=== PATIENT | male | born 1940 | race Caucasian/White ===

== ENCOUNTER 2021-02-09 20:41 | Inpatient (IN) ==
[2021-02-10] MEDS ORDERED: Ondansetron ODT 4 MG TAB.RAPDIS SL PRN (15:42)
[2021-02-10] MEDS ORDERED: Acetaminophen 325 MG TABLET PO PRN (15:42)
[2021-02-11] MEDS: Indomethacin 25 MG CAPSULE PO SCH ×4 (03:47→17:03)
[2021-02-11] MEDS: *HR* Enoxaparin 40 MG/0.4 ML SYRINGE SQ SCH (06:07)
[2021-02-11 06:54] LABS: Basophils % 0.2 %; Eosinophils # 0.3 K/mcL (0.0-0.6); Hematocrit 42.7 % (37.5-50.1); Hemoglobin 14.3 g/dL (12.9-16.9); Immature Granulocytes % 0.5 % (0-4); Lymphocytes # 1.1 K/mcL (0.6-4.6); Lymphocytes % 13.1 %; Mean Corpuscular HGB Conc 33.5 g/dL (31.6-35.5); Mean Corpuscular Hemoglobin 30.2 pg (28.0-33.3); Mean Corpuscular Volume 90.3 fL (83.0-100.0); Mean Platelet Volume 10.7 fL (9.4-12.4); Monocytes # 0.9 K/mcL (0.0-1.3); Monocytes % 10.4 %; Neutrophils # 6.1 K/mcL (1.6-8.9); Platelet Count 345 K/mcL (140-400); Red Blood Count 4.73 M/mcL (4.19-5.50); Red Cell Distribution Width 13.2 % (11.5-14.5); Segmented Neutrophils % 72.8 %; White Blood Count 8.4 K/mcL (4.3-11.1)
[2021-02-11 07:17] LABS: BUN/Creatinine Ratio 26 (6-26); Blood Urea Nitrogen 28 mg/dL (8-23); Calcium 8.5 mg/dL (8.6-10.3); Carbon Dioxide 32 mEq/L (23-29); Chloride 103 mEq/L (98-107); Glucose 92 mg/dL (70-105); Osmolality,Calculated 299 (280-300); Potassium 4.2 mEq/L (3.5-5.1); Sodium 142 mEq/L (136-145); eGFR For African Americans > 60 (> 60); eGFR For Non-African Americans > 60 (> 60)
[2021-02-11] MEDS: amLODIPine 5 MG TABLET PO SCH (10:23)
[2021-02-11] MEDS: hydrALAZINE 25 MG TABLET PO SCH ×2 (12:09→20:46)
[2021-02-11] MEDS: *HR* HYDROcodone/Acet 5/325 mg TABLET PO PRN (12:10)
[2021-02-12] MEDS: hydrALAZINE 25 MG TABLET PO SCH ×3 (05:15→19:54)
[2021-02-12] MEDS: *HR* Enoxaparin 40 MG/0.4 ML SYRINGE SQ SCH (05:16)
[2021-02-12] MEDS: Indomethacin 25 MG CAPSULE PO SCH ×2 (07:55→12:08)
[2021-02-12] MEDS: amLODIPine 5 MG TABLET PO SCH (07:55)
[2021-02-13] MEDS: hydrALAZINE 25 MG TABLET PO SCH ×3 (05:42→22:32)
[2021-02-13] MEDS: *HR* Enoxaparin 40 MG/0.4 ML SYRINGE SQ SCH (05:42)
[2021-02-13] MEDS: amLODIPine 5 MG TABLET PO SCH (09:36)
[2021-02-13] MEDS: allopurinoL 100 MG TABLET PO SCH (09:36)
[2021-02-13] MEDS: *HR* HYDROcodone/Acet 5/325 mg TABLET PO PRN ×2 (16:32→22:32)
[2021-02-14] MEDS: *HR* Enoxaparin 40 MG/0.4 ML SYRINGE SQ SCH (05:29)
[2021-02-14] MEDS: hydrALAZINE 25 MG TABLET PO SCH ×4 (07:38→21:25)
[2021-02-14] MEDS: allopurinoL 100 MG TABLET PO SCH (07:43)
[2021-02-14] MEDS: amLODIPine 5 MG TABLET PO SCH (07:43)
[2021-02-15] MEDS: *HR* Enoxaparin 40 MG/0.4 ML SYRINGE SQ SCH (05:29)
[2021-02-15] MEDS: hydrALAZINE 25 MG TABLET PO SCH ×3 (05:29→21:24)
[2021-02-15] MEDS: allopurinoL 100 MG TABLET PO SCH (10:30)
[2021-02-15] MEDS: amLODIPine 5 MG TABLET PO SCH (10:30)
[2021-02-16] MEDS: hydrALAZINE 25 MG TABLET PO SCH ×3 (05:12→20:17)
[2021-02-16] MEDS: *HR* Enoxaparin 40 MG/0.4 ML SYRINGE SQ SCH (05:14)
[2021-02-16 06:53] LABS: Basophils % 0.3 %; Eosinophils # 0.3 K/mcL (0.0-0.6); Eosinophils % 3.3 %; Hematocrit 39.5 % (37.5-50.1); Hemoglobin 13.4 g/dL (12.9-16.9); Immature Granulocytes % 0.5 % (0-4); Lymphocytes # 1.2 K/mcL (0.6-4.6); Lymphocytes % 15.1 %; Mean Corpuscular HGB Conc 33.9 g/dL (31.6-35.5); Mean Corpuscular Hemoglobin 31.2 pg (28.0-33.3); Mean Corpuscular Volume 92.1 fL (83.0-100.0); Mean Platelet Volume 10.9 fL (9.4-12.4); Monocytes # 0.9 K/mcL (0.0-1.3); Monocytes % 11.4 %; Neutrophils # 5.4 K/mcL (1.6-8.9); Platelet Count 254 K/mcL (140-400); Red Blood Count 4.29 M/mcL (4.19-5.50); Red Cell Distribution Width 13.4 % (11.5-14.5); Segmented Neutrophils % 69.4 %; White Blood Count 7.8 K/mcL (4.3-11.1)
[2021-02-16 07:08] LABS: BUN/Creatinine Ratio 20 (6-26); Blood Urea Nitrogen 21 mg/dL (8-23); Calcium 8.8 mg/dL (8.6-10.3); Carbon Dioxide 27 mEq/L (23-29); Chloride 99 mEq/L (98-107); Glucose 96 mg/dL (70-105); Osmolality,Calculated 291 (280-300); Potassium 3.8 mEq/L (3.5-5.1); Sodium 139 mEq/L (136-145); eGFR For African Americans > 60 (> 60); eGFR For Non-African Americans > 60 (> 60)
[2021-02-16] MEDS: amLODIPine 5 MG TABLET PO SCH (08:46)
[2021-02-16] MEDS: allopurinoL 100 MG TABLET PO SCH (08:46)
[2021-02-16] MEDS: *HR* HYDROcodone/Acet 5/325 mg TABLET PO PRN (15:04)
[2021-02-17] MEDS: *HR* Enoxaparin 40 MG/0.4 ML SYRINGE SQ SCH (06:01)
[2021-02-17] MEDS: hydrALAZINE 25 MG TABLET PO SCH ×3 (06:01→20:19)
[2021-02-17] MEDS: allopurinoL 100 MG TABLET PO SCH (09:40)
[2021-02-17] MEDS: amLODIPine 5 MG TABLET PO SCH (09:40)
[2021-02-18] MEDS: hydrALAZINE 25 MG TABLET PO SCH ×3 (05:26→21:21)
[2021-02-18] MEDS: *HR* Enoxaparin 40 MG/0.4 ML SYRINGE SQ SCH (05:32)
[2021-02-18] MEDS: amLODIPine 5 MG TABLET PO SCH (08:31)
[2021-02-18] MEDS: allopurinoL 100 MG TABLET PO SCH (08:31)
[2021-02-19] MEDS: hydrALAZINE 25 MG TABLET PO SCH ×3 (05:00→22:31)
[2021-02-19] MEDS: *HR* Enoxaparin 40 MG/0.4 ML SYRINGE SQ SCH (05:01)
[2021-02-19] MEDS: allopurinoL 100 MG TABLET PO SCH (08:25)
[2021-02-19] MEDS: amLODIPine 5 MG TABLET PO SCH (08:25)
[2021-02-19] MEDS ORDERED: Capsaicin 0.025% 60 GM TUBE TP PRN (15:27)
[2021-02-19] MEDS: Capsaicin 0.025% 60 GM TUBE TP SCH ×2 (16:45→22:31)
[2021-02-19] MEDS ORDERED: QUEtiapine Fumarate 25 MG TABLET PO SCH (21:00)
[2021-02-19] MEDS: QUEtiapine Fumarate 25 MG TABLET PO SCH (22:30)
[2021-02-20] MEDS: *HR* HYDROcodone/Acet 5/325 mg TABLET PO PRN ×2 (01:48→10:23)
[2021-02-20] MEDS: *HR* Enoxaparin 40 MG/0.4 ML SYRINGE SQ SCH (06:10)
[2021-02-20] MEDS: hydrALAZINE 25 MG TABLET PO SCH ×3 (06:16→21:46)
[2021-02-20 08:32] LABS: Basophils % 0.1 %; Eosinophils # 0.1 K/mcL (0.0-0.6); Eosinophils % 0.9 %; Hematocrit 38.6 % (37.5-50.1); Hemoglobin 12.8 g/dL (12.9-16.9); Immature Granulocytes % 0.6 % (0-4); Lymphocytes # 0.9 K/mcL (0.6-4.6); Lymphocytes % 10.7 %; Mean Corpuscular HGB Conc 33.2 g/dL (31.6-35.5); Mean Corpuscular Hemoglobin 30.5 pg (28.0-33.3); Mean Corpuscular Volume 92.1 fL (83.0-100.0); Mean Platelet Volume 10.6 fL (9.4-12.4); Monocytes # 1.2 K/mcL (0.0-1.3); Monocytes % 13.7 %; Neutrophils # 6.3 K/mcL (1.6-8.9); Platelet Count 248 K/mcL (140-400); Red Blood Count 4.19 M/mcL (4.19-5.50); Red Cell Distribution Width 13.5 % (11.5-14.5); White Blood Count 8.5 K/mcL (4.3-11.1)
[2021-02-20 08:56] LABS: BUN/Creatinine Ratio 19 (6-26); Blood Urea Nitrogen 22 mg/dL (8-23); Calcium 8.7 mg/dL (8.6-10.3); Carbon Dioxide 25 mEq/L (23-29); Chloride 103 mEq/L (98-107); Glucose 123 mg/dL (70-105); Osmolality,Calculated 289 (280-300); Potassium 3.8 mEq/L (3.5-5.1); Sodium 137 mEq/L (136-145); eGFR For African Americans > 60 (> 60); eGFR For Non-African Americans > 60 (> 60)
[2021-02-20] MEDS: allopurinoL 100 MG TABLET PO SCH (09:12)
[2021-02-20] MEDS: amLODIPine 5 MG TABLET PO SCH (09:12)
[2021-02-20] MEDS: Capsaicin 0.025% 60 GM TUBE TP SCH ×4 (09:12→21:47)
[2021-02-20] MEDS: QUEtiapine Fumarate 25 MG TABLET PO SCH (21:46)
[2021-02-21] MEDS: hydrALAZINE 25 MG TABLET PO SCH ×3 (05:52→23:46)
[2021-02-21] MEDS: *HR* Enoxaparin 40 MG/0.4 ML SYRINGE SQ SCH (05:53)
[2021-02-21] MEDS: amLODIPine 5 MG TABLET PO SCH (08:13)
[2021-02-21] MEDS: allopurinoL 100 MG TABLET PO SCH (08:14)
[2021-02-21] MEDS: *HR* HYDROcodone/Acet 5/325 mg TABLET PO PRN ×2 (08:14→17:08)
[2021-02-21] MEDS: Capsaicin 0.025% 60 GM TUBE TP SCH ×4 (08:15→23:49)
[2021-02-21] MEDS: QUEtiapine Fumarate 25 MG TABLET PO SCH (23:46)
[2021-02-22] MEDS: *HR* Enoxaparin 40 MG/0.4 ML SYRINGE SQ SCH (06:37)
[2021-02-22] MEDS: hydrALAZINE 25 MG TABLET PO SCH ×3 (06:50→23:05)
[2021-02-22 06:55] LABS: Bilirubin,Urine Negative (Negative); Blood,Urine Negative (Negative); Clarity,Urine Clear (Clear); Color,Urine Yellow (Yellow); Glucose,Urine (UA) Normal (Normal); Ketones,Urine Negative (Negative); Leukocyte Esterase,Urine Negative (Negative); Nitrite,Urine Negative (Negative); PH,Urine 5.5 pH Units (5.0-8.0); Protein,Urine Trace mg/dL (Neg-Trace); Urobilinogen,Urine Normal (Normal)
[2021-02-22] MEDS: amLODIPine 5 MG TABLET PO SCH (11:13)
[2021-02-22] MEDS: allopurinoL 100 MG TABLET PO SCH (11:14)
[2021-02-22] MEDS: Capsaicin 0.025% 60 GM TUBE TP SCH ×4 (11:14→17:43)
[2021-02-22] MEDS: *HR* HYDROcodone/Acet 5/325 mg TABLET PO PRN ×2 (11:42→17:40)
[2021-02-22] MEDS: QUEtiapine Fumarate 25 MG TABLET PO SCH (19:53)
[2021-02-23] MEDS: *HR* Enoxaparin 40 MG/0.4 ML SYRINGE SQ SCH (06:31)
[2021-02-23] MEDS: hydrALAZINE 25 MG TABLET PO SCH ×3 (06:38→20:09)
[2021-02-23] MEDS: amLODIPine 5 MG TABLET PO SCH (09:17)
[2021-02-23] MEDS: allopurinoL 100 MG TABLET PO SCH (09:17)
[2021-02-23] MEDS: Capsaicin 0.025% 60 GM TUBE TP SCH ×4 (09:18→20:09)
[2021-02-23] MEDS: QUEtiapine Fumarate 25 MG TABLET PO SCH (20:09)
[2021-02-24] MEDS: *HR* HYDROcodone/Acet 5/325 mg TABLET PO PRN ×2 (06:53→16:31)
[2021-02-24] MEDS: *HR* Enoxaparin 40 MG/0.4 ML SYRINGE SQ SCH (06:53)
[2021-02-24] MEDS: hydrALAZINE 25 MG TABLET PO SCH ×3 (06:53→20:39)
[2021-02-24] MEDS: amLODIPine 5 MG TABLET PO SCH (09:17)
[2021-02-24] MEDS: allopurinoL 100 MG TABLET PO SCH (09:17)
[2021-02-24] MEDS: Capsaicin 0.025% 60 GM TUBE TP SCH ×4 (09:18→20:40)
[2021-02-24] MEDS: QUEtiapine Fumarate 25 MG TABLET PO SCH (20:39)
[2021-02-25] MEDS: *HR* Enoxaparin 40 MG/0.4 ML SYRINGE SQ SCH (05:40)
[2021-02-25] MEDS: hydrALAZINE 25 MG TABLET PO SCH ×3 (05:41→21:13)
[2021-02-25] MEDS: Capsaicin 0.025% 60 GM TUBE TP SCH ×4 (09:11→21:15)
[2021-02-25] MEDS: allopurinoL 100 MG TABLET PO SCH (09:11)
[2021-02-25] MEDS: amLODIPine 5 MG TABLET PO SCH (09:11)
[2021-02-25] MEDS: *HR* HYDROcodone/Acet 5/325 mg TABLET PO PRN (21:13)
[2021-02-25] MEDS: QUEtiapine Fumarate 25 MG TABLET PO SCH (21:14)
[2021-02-26] MEDS: *HR* Enoxaparin 40 MG/0.4 ML SYRINGE SQ SCH (06:07)
[2021-02-26] MEDS: hydrALAZINE 25 MG TABLET PO SCH ×3 (06:07→20:56)
[2021-02-26] MEDS: amLODIPine 5 MG TABLET PO SCH (07:41)
[2021-02-26] MEDS: allopurinoL 100 MG TABLET PO SCH (07:42)
[2021-02-26] MEDS: Capsaicin 0.025% 60 GM TUBE TP SCH ×4 (07:43→20:57)
[2021-02-26] MEDS: Sennosides/Docusate Sodium TABLET PO SCH ×2 (11:31→20:57)
[2021-02-26] MEDS: QUEtiapine Fumarate 25 MG TABLET PO SCH (20:57)
[2021-02-27] MEDS: *HR* Enoxaparin 40 MG/0.4 ML SYRINGE SQ SCH (05:44)
[2021-02-27] MEDS: hydrALAZINE 25 MG TABLET PO SCH ×4 (05:44→22:07)
[2021-02-27] MEDS: Sennosides/Docusate Sodium TABLET PO SCH ×2 (09:40→22:07)
[2021-02-27] MEDS: allopurinoL 100 MG TABLET PO SCH (09:40)
[2021-02-27] MEDS: amLODIPine 5 MG TABLET PO SCH (09:40)
[2021-02-27] MEDS: Capsaicin 0.025% 60 GM TUBE TP SCH ×4 (09:41→22:06)
[2021-02-27] MEDS: *HR* HYDROcodone/Acet 5/325 mg TABLET PO PRN (09:56)
[2021-02-27] MEDS: QUEtiapine Fumarate 25 MG TABLET PO SCH (22:07)
[2021-02-28] MEDS: hydrALAZINE 25 MG TABLET PO SCH ×3 (06:06→21:33)
[2021-02-28] MEDS: *HR* Enoxaparin 40 MG/0.4 ML SYRINGE SQ SCH (06:06)
[2021-02-28] MEDS: Sennosides/Docusate Sodium TABLET PO SCH ×2 (07:49→21:33)
[2021-02-28] MEDS: amLODIPine 5 MG TABLET PO SCH (07:49)
[2021-02-28] MEDS: allopurinoL 100 MG TABLET PO SCH (07:49)
[2021-02-28] MEDS: Capsaicin 0.025% 60 GM TUBE TP SCH ×4 (07:50→21:34)
[2021-02-28] MEDS: QUEtiapine Fumarate 25 MG TABLET PO SCH (21:32)
[2021-03-01] MEDS: hydrALAZINE 25 MG TABLET PO SCH ×3 (04:54→20:03)
[2021-03-01] MEDS: *HR* Enoxaparin 40 MG/0.4 ML SYRINGE SQ SCH (06:54)
[2021-03-01 07:21] LABS: Basophils % 0.6 %; Eosinophils # 0.5 K/mcL (0.0-0.6); Eosinophils % 8.4 %; Hematocrit 36.7 % (37.5-50.1); Immature Granulocytes % 1.3 % (0-4); Lymphocytes # 1.1 K/mcL (0.6-4.6); Lymphocytes % 20.4 %; Mean Corpuscular HGB Conc 32.7 g/dL (31.6-35.5); Mean Corpuscular Hemoglobin 30.5 pg (28.0-33.3); Mean Corpuscular Volume 93.1 fL (83.0-100.0); Mean Platelet Volume 9.5 fL (9.4-12.4); Monocytes # 0.6 K/mcL (0.0-1.3); Neutrophils # 3.2 K/mcL (1.6-8.9); Platelet Count 372 K/mcL (140-400); Red Blood Count 3.94 M/mcL (4.19-5.50); Segmented Neutrophils % 58.3 %; White Blood Count 5.5 K/mcL (4.3-11.1)
[2021-03-01 08:07] LABS: BUN/Creatinine Ratio 20 (6-26); Blood Urea Nitrogen 21 mg/dL (8-23); Calcium 8.7 mg/dL (8.6-10.3); Carbon Dioxide 26 mEq/L (23-29); Chloride 106 mEq/L (98-107); Glucose 86 mg/dL (70-105); Osmolality,Calculated 294 (280-300); Potassium 3.9 mEq/L (3.5-5.1); Sodium 141 mEq/L (136-145); eGFR For African Americans > 60 (> 60); eGFR For Non-African Americans > 60 (> 60)
[2021-03-01] MEDS: Capsaicin 0.025% 60 GM TUBE TP SCH ×4 (08:55→20:06)
[2021-03-01] MEDS: Sennosides/Docusate Sodium TABLET PO SCH ×2 (08:55→20:03)
[2021-03-01] MEDS: allopurinoL 100 MG TABLET PO SCH (08:55)
[2021-03-01] MEDS: amLODIPine 5 MG TABLET PO SCH (08:55)
[2021-03-01] MEDS: QUEtiapine Fumarate 25 MG TABLET PO SCH (20:02)
[2021-03-01] MEDS: rOPINIRole 1 MG TABLET PO SCH (20:11)
[2021-03-02] MEDS: hydrALAZINE 25 MG TABLET PO SCH ×3 (05:18→20:11)
[2021-03-02] MEDS: *HR* Enoxaparin 40 MG/0.4 ML SYRINGE SQ SCH (06:53)
[2021-03-02] MEDS: amLODIPine 5 MG TABLET PO SCH (10:07)
[2021-03-02] MEDS: Sennosides/Docusate Sodium TABLET PO SCH ×2 (10:08→20:12)
[2021-03-02] MEDS: Capsaicin 0.025% 60 GM TUBE TP SCH ×4 (10:08→20:13)
[2021-03-02] MEDS: allopurinoL 100 MG TABLET PO SCH (10:08)
[2021-03-02] MEDS: *HR* HYDROcodone/Acet 5/325 mg TABLET PO PRN (10:15)
[2021-03-02] MEDS: rOPINIRole 1 MG TABLET PO SCH (20:11)
[2021-03-02] MEDS: QUEtiapine Fumarate 25 MG TABLET PO SCH (20:12)
[2021-03-03] MEDS: hydrALAZINE 25 MG TABLET PO SCH ×3 (05:39→20:28)
[2021-03-03] MEDS: *HR* Enoxaparin 40 MG/0.4 ML SYRINGE SQ SCH (05:39)
[2021-03-03] MEDS: amLODIPine 5 MG TABLET PO SCH (10:23)
[2021-03-03] MEDS: *HR* HYDROcodone/Acet 5/325 mg TABLET PO PRN ×2 (10:23→20:29)
[2021-03-03] MEDS: Capsaicin 0.025% 60 GM TUBE TP SCH ×4 (10:23→20:30)
[2021-03-03] MEDS: allopurinoL 100 MG TABLET PO SCH (10:23)
[2021-03-03] MEDS: Sennosides/Docusate Sodium TABLET PO SCH ×2 (10:23→20:28)
[2021-03-03] MEDS: Ibuprofen 600 MG TABLET PO PRN (17:06)
[2021-03-03] MEDS: rOPINIRole 1 MG TABLET PO SCH (20:28)
[2021-03-03] MEDS: QUEtiapine Fumarate 25 MG TABLET PO SCH (20:29)
[2021-03-04] MEDS: hydrALAZINE 25 MG TABLET PO SCH ×3 (05:40→20:27)
[2021-03-04] MEDS: *HR* Enoxaparin 40 MG/0.4 ML SYRINGE SQ SCH (05:41)
[2021-03-04] MEDS: Ibuprofen 600 MG TABLET PO PRN ×2 (10:57→20:26)
[2021-03-04] MEDS: amLODIPine 5 MG TABLET PO SCH (10:57)
[2021-03-04] MEDS: Sennosides/Docusate Sodium TABLET PO SCH ×2 (10:58→20:21)
[2021-03-04] MEDS: allopurinoL 100 MG TABLET PO SCH (10:59)
[2021-03-04] MEDS: Capsaicin 0.025% 60 GM TUBE TP SCH ×4 (10:59→20:28)
[2021-03-04] MEDS: QUEtiapine Fumarate 25 MG TABLET PO SCH (20:27)
[2021-03-04] MEDS: rOPINIRole 1 MG TABLET PO SCH (20:27)
[2021-03-05] MEDS: *HR* Enoxaparin 40 MG/0.4 ML SYRINGE SQ SCH (06:14)
[2021-03-05] MEDS: hydrALAZINE 25 MG TABLET PO SCH ×3 (06:15→19:57)
[2021-03-05] MEDS: amLODIPine 5 MG TABLET PO SCH (08:48)
[2021-03-05] MEDS: allopurinoL 100 MG TABLET PO SCH (08:48)
[2021-03-05] MEDS: Capsaicin 0.025% 60 GM TUBE TP SCH ×5 (08:49→20:02)
[2021-03-05] MEDS: Sennosides/Docusate Sodium TABLET PO SCH ×2 (08:49→19:58)
[2021-03-05] MEDS: rOPINIRole 1 MG TABLET PO SCH (19:58)
[2021-03-05] MEDS: QUEtiapine Fumarate 25 MG TABLET PO SCH (19:58)
[2021-03-06] MEDS: *HR* Enoxaparin 40 MG/0.4 ML SYRINGE SQ SCH (05:47)
[2021-03-06] MEDS: hydrALAZINE 25 MG TABLET PO SCH ×3 (05:47→20:10)
[2021-03-06] MEDS: amLODIPine 5 MG TABLET PO SCH (08:25)
[2021-03-06] MEDS: allopurinoL 100 MG TABLET PO SCH (08:25)
[2021-03-06] MEDS: Sennosides/Docusate Sodium TABLET PO SCH ×2 (08:25→20:10)
[2021-03-06] MEDS: Capsaicin 0.025% 60 GM TUBE TP SCH ×4 (08:33→20:11)
[2021-03-06 18:26] LABS: Bilirubin,Urine Negative (Negative); Blood,Urine Negative (Negative); Clarity,Urine Clear (Clear); Color,Urine Yellow (Yellow); Glucose,Urine (UA) Normal (Normal); Ketones,Urine Negative (Negative); Leukocyte Esterase,Urine Negative (Negative); Nitrite,Urine Negative (Negative); Protein,Urine Negative (Neg-Trace); Specific Gravity,Urine 1.015 (1.010-1.025); Urobilinogen,Urine Normal (Normal)
[2021-03-06] MEDS: rOPINIRole 1 MG TABLET PO SCH (20:10)
[2021-03-06] MEDS: QUEtiapine Fumarate 25 MG TABLET PO SCH (20:10)
[2021-03-07 05:57] VITALS: PULSE 73
[2021-03-07] MEDS: hydrALAZINE 25 MG TABLET PO SCH (06:39)
[2021-03-07] MEDS: *HR* Enoxaparin 40 MG/0.4 ML SYRINGE SQ SCH (06:39)
[2021-03-07 06:58] VITALS: BP 115/52; RESP 18; TEMP 98; O2SAT 92
[2021-03-07] MEDS: allopurinoL 100 MG TABLET PO SCH (08:17)
[2021-03-07] MEDS: Sennosides/Docusate Sodium TABLET PO SCH (08:17)
[2021-03-07] MEDS: amLODIPine 5 MG TABLET PO SCH (08:17)
[2021-03-07] MEDS: Capsaicin 0.025% 60 GM TUBE TP SCH (08:19)
== END 2021-03-07 14:10 | disposition home health service (06) | DRG 552 ==
LOC: INPPIK 02-10 20:20
PROVIDERS: ADMIT Family Medicine; ATTEND Family Medicine